=== PATIENT | male | born 1965 | race Caucasian/White ===

== ENCOUNTER 2020-11-07 09:12 | Emergency (ER) | payer BC ==
--- NOTE | 2020-11-07 10:01 | RAD REPORT ---
EXAM DESCRIPTION: RAD - Wrist Left 3 View - 11/07/2020 9:49 am CLINICAL HISTORY: wrist pain, no precipitating event COMPARISON: No comparisonsNo comparisons FINDINGS: No fracture is identified. There is no dislocation or periosteal reaction noted. No foreig n body or other soft tissue abnormality. IMPRESSION: Negative left wrist examination.
[2020-11-07] MEDS ORDERED: KETOROLAC 30 MG/ML INJ ONE (10:25)
--- NOTE | 2020-11-07 10:46 | EDPHYS ---
Physician Documentation [facility] Name: Chadd Billy Age: 55 yrs Sex: Male : 1965 Arrival Date: 11/07/2020 Time: 09:18 Bed 13 Private MD: Fredy Domingo V ED Physician Blaine Larson HPI: 11/07 09:37 This 55 yrs old Male presents to ER via Unassigned with complaints of Wrist jmm Injury. 09:37 The patient or guardian reports pain. Onset: The symptoms/episode began/occurred 1 jmm week(s) ago. Modifying factors: The symptoms are alleviated by holding still, the symptoms are aggravated by movement. Associated signs and symptoms: Pertinent negatives: nausea, numbness distally, tingling distally, vomiting. This is a 55 year old male with no chronic medical conditions that presents to the ED with complaints of left wrist pain. Denies known injury. Denies fever. States he does work out 6 times a week. . 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 - Social history:: Smoking status: Patient denies any tobacco usage or history of. ROS: 09:37 Constitutional: Negative for fever, chills, and weight loss, Cardiovascular: Negative jmm for chest pain, palpitations, and edema, Respiratory: Negative for shortness of breath, cough, wheezing, and pleuritic chest pain. 09:37 MS/extremity: Positive for pain. 09:37 All other systems are negative. Exam: 09:37 Constitutional: This is a well developed, well nourished patient who is awake, alert, jmm and in no acute distress. Head/Face: atraumatic. Eyes: EOMI, no conjunctival erythema appreciated ENT: Moist Mucus Membranes Neck: Trachea midline, Supple Chest/axilla: Normal chest wall appearance and motion. Cardiovascular: Regular rate and rhythm. No edema appreciated Respiratory: Normal respirations, no respiratory distress appreciated Abdomen/GI: Non distended, soft Back: Normal ROM Skin: General appearance color normal 09:37 Neuro: Awake and alert, normal gait Psych: Behavior is normal, Mood is normal, Patient is cooperative and pleasant 09:37 Musculoskeletal/extremity: pain elicited on the radial side of the left wrist, (+) julio cesar. Vital Signs: 09:35 BP 131 / 87; Pulse 85; Resp 14; Temp 98.3(TE); Pulse Ox 98% on R/A; Weight 81.65 kg; ss Height 5 ft. 9 in. (175.26 cm); Pain 5/10; 09:35 Body Mass Index 26.58 (81.65 kg, 175.26 cm) ss MDM: 09:29 Patient medically screened. gabriel 10:43 Data reviewed: vital signs, nurses notes. Counseling: I had a detailed discussion with [facility] the patient and/or guardian regarding: the historical points, exam findings, and any diagnostic results supporting the discharge/admit diagnosis, lab results, radiology results, the need for outpatient follow up, to return to the emergency department if symptoms worsen or persist or if there are any questions or concerns that arise at home. ED course: PE exam findings consistent with dequervains tenosynotivitis. Advised to follow up with orth for further evaluation. Patient understood and agrees with the plan of care. . 11/07 09:36 Order name: Uric Acid; Complete Time: 10:39 [facility] 11/07 09:35 Order name: Wrist Left (3 View) XRAY; Complete Time: 10:02 [facility] 11/07 10:31 Order name: Thumb Spica Splint; Complete Time: 10:35 [facility] Administered Medications: 10:22 Drug: Ketorolac 30 mg Route: IM; Site: left deltoid; tr6 Disposition: 12:22 Co-signature as Attending Physician, Blaine Larson MD I agree with the assessment and gabriel plan of care. Disposition: 11/07/20 10:45 Discharged to Home. Impression: Other synovitis and tenosynovitis. - Condition is Stable. - Discharge Instructions: De Quervain Tenosynovitis. - Prescriptions for Ibuprofen 800 mg Oral Tablet - take 1 tablet by ORAL route every 8 hours As needed take with food; 30 tablet. orphenadrine citrate 100 mg Oral Tablet Sustained Release - take 1 tablet by ORAL route 2 times per day As needed; 20 tablet. - Medication Reconciliation Form, Thank You Letter, Antibiotic Education, Prescription Opioid Use form. - Follow up: Cameron Thomas MD; When: 2 - 3 days; Reason: Recheck today's complaints, Continuance of care, Re-evaluation by your physician. Signatures: Dispatcher [employer] EDBlaine Tyson MD MD cha Mickail, Joel, PA PA jmm Smirch, Shelby, RN RN ss Domitila Schulz RN RN tr6 Corrections: (The following items were deleted from the chart) 11:22 10:45 11/07/2020 10:45 Discharged to Home. Impression: Other synovitis and tr6 tenosynovitis. Condition is Stable. Forms are Medication Reconciliation Form, Thank You Letter, Antibiotic Education, Prescription Opioid Use. Follow up: Dr. Cameron Thomas; When: 2 - 3 days; Reason: Recheck today's complaints, Continuance of care, Re-evaluation by your physician. renea
--- NOTE | 2020-11-07 10:46 | ER ---
Nurse's Notes [facility] Name: Chadd Billy Age: 55 yrs Sex: Male : 1965 Arrival Date: 11/07/2020 Time: 09:18 Bed 13 Private MD: Fredy Domingo V Diagnosis: Other synovitis and tenosynovitis Presentation: 11/07 09:35 Chief complaint: Patient states: L wrist pain and swelling that began 2 days ago. No ss known injury. Coronavirus screen: Client denies travel out of the [place] in the last 14 days. Ebola Screen: Patient denies exposure to infectious person. Patient denies travel to an Ebola-affected area in the 21 days before illness onset. Initial Sepsis Screen: Does the patient meet any 2 criteria? No. Patient's initial sepsis screen is negative. Does the patient have a suspected source of infection? No. Patient's initial sepsis screen is negative. Risk Assessment: Do you want to hurt yourself or someone else? Patient reports no desire to harm self or others. Onset of symptoms was November 04, 2020. 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 - Social history:: Smoking status: Patient denies any tobacco usage or history of. Vital Signs: 09:35 BP 131 / 87; Pulse 85; Resp 14; Temp 98.3(TE); Pulse Ox 98% on R/A; Weight 81.65 kg; ss Height 5 ft. 9 in. (175.26 cm); Pain 5/10; 09:35 Body Mass Index 26.58 (81.65 kg, 175.26 cm) ED Course: 09:18 Patient arrived in ED. am2 09:18 Fredy Domingo MD is Private Physician. am2 09:26 [facility] 09:26 Blaien Larson MD is Attending Physician. [facility] 09:37 Triage completed. ss 09:38 Arm band placed on right wrist. ss 09:48 Domitila Schulz, RN is Primary Nurse. tr6 09:49 Wrist Left (3 View) XRAY In Process Unspecified. EDMS 10:44 Cameron Thomas MD is Referral Physician. jmm 11:06 Velcro wrist splint applied to left wrist. em1 Administered Medications: 10:22 Drug: Ketorolac 30 mg Route: IM; Site: left deltoid; tr6 Outcome: 10:45 Discharge ordered by . jmm 11:22 Patient left the ED. tr6 Signatures: Dispatcher [employer] EDMS Radu Poe PA PA jmm Martinez, Eric em1 Aditi Viramontes RN RN Arlyn Reeves am2 Domitila Schulz, JANAE RN tr6
[2020-11-07 11:26] VITALS: BP 131/87; TEMP 98.3; O2SAT 98
== END 2020-11-07 11:22 | disposition home or self-care (01) ==
LOC: ER 09:12
DX: M65.88 Other synovitis and tenosynovitis, other site (principal)
CPT/HCPCS: 36415; 84550; 96372; 99283

== ENCOUNTER 2021-10-28 16:39 | Emergency (ER) | payer BC ==
--- OUTSIDE RECORDS SUMMARY | 2021-10-28 16:42 | XMS REPORT | Continuity of Care Document ---
:1965 Author Organization [facility] t Address [address] [place] [address] Dr. Talley [address] [place] [id number] Care Team Providers Name Role Phone Chayo CORDERO Primary Care Physician Chayo CORDERO Attending Clinician Claudio Carpenter MD Attending Clinician Fiona CORDERO Attending Clinician David TIPTON Attending Clinician Unavailable Aurora Attending Clinician Bradley CORDERO Attending Clinician Luz HODGES Attending Clinician MD JUSTINE CThierry Attending Clinician Unavailable Radha AMOS Attending Clinician Unavailable Shyam AMOS Attending Clinician Unavailable SHEILA Attending Clinician Unavailable FAISAL Attending Clinician Unavailable MD FAISAL Attending Clinician Unavailable JUSTINE Admitting Clinician Unavailable MD JUSTINE CThierry Admitting Clinician Unavailable FAISAL Admitting Clinician Unavailable MD FAISAL Admitting Clinician Unavailable MD CHARLI SANTOS Admitting Clinician Unavailable Payers Payer Name Policy Type Policy Number Effective Date Expiration Date S ource Problems Condition Condition Condition Status Onset Resolution Last Treating Co mments Source Name Details Category Date Date Treatment Clinician Date Chondromal Chondromal Disease Active Overview : [facility] [facility] left knee left knee 00:00: g of this H ospita 00 note l might be different from the original. Added automatic ally from request for surgery [id number] Chondromal Chondromal Disease Active Overview : [facility] [facility] patellofem patellofem 00:00: g of this Hospita oral oral 00 note l joint, joint, might be left left different from the original. Added automatic ally from request for surgery [id number] Arthrofibr Arthrofibr Disease Active Overview : [facility] osis [facility] osis of 09-[address] knee knee 00:00: g of this Hospita joint, joint, 00 note l left left might be different from the original. Added automatic ally from request for surgery [id number] Tear of Tear of Disease Active Methodi medial medial 07-14 st meniscus meniscus 00:00: Hospit a of left of left 00 l knee, knee, current current Bleeding Bleeding Disease Active Overview: Me thodi disorder disorder 10-[address] 00:00: g of this Hospita 00 note l might be different from the original. PT IS SEEING HEMATOLOG IST FOR F/U. Allergies, Adverse Reactions, Alerts This patient has no known allergies or adverse reactions. Family History Family Member Diagnosis Comments Start Date Stop Date Source Natural mother Cancer [facility] Natural brother Diabetes [facility] father Alcohol abuse [facility] father Arthritis [facility] father COPD [facility] father Heart disease [facility] father Hypertension [facility] Social History Social Habit Start Date Stop Date Quantity Comments Source History SDOH [facility] Frequency [facility]ospita l History SDOH [facility] Std [facility] Drinks History SDOH [facility] Binge [facility] Alcohol intake 2020-07-19 2020-07-19 .86 /d [facility] 00:[facility]00:00 Hospital Tobacco use and 2018-06-26 2018-06-26 Smokeless tobacco Me thodist exposure 00:00:00 00:00:00 non-user Hospital Alcohol Comment 2018-06-26 2018-06-26 social drinker [facility] dist 00:00:00 00:00:00 only Hospital Sex Assigned At [birth year] [facility] 00:00:00 00:00:00 Hospital Smoking Status Start Date Stop Date Source Never smoked tobacco [facility] Medications Ordered Filled Start Stop Current Ordering Indication Dosage Frequency Signature Comments Components Source Medication Medication Date Date Medication? Clinician (SIG) Name Name ascorbic Yes 250mg QD Take 250 Meth ran acid, 2-[address] vitamin C, 08:47: mouth Hospit a (vitamin C) 02 daily. l 250 MG tablet ZINC ORAL Yes Take by Metho di 2-[address] 08:47: Hospita 02 l vitamin E Yes Take by Metho di acetate 2-[address] (VITAMIN E 08:47: Hospita ORAL) 02 l cholecalcif Yes 2000U QD Take 2,000 Methodi jesus, 2-24 Units by vitamin D3, 08:47: mouth Hospi ta 50 mcg 02 daily. l (2,000 unit) capsule capsule cyanocobala Yes Q7D Inject as M ethodi min, 2-[address] vitamin 08:47: once a Hospita B-12, 02 week. l (VITAMIN B-12 INJ) TESTOSTERON Yes Q7D Inject Meth ran E ENANTHATE 2-[address] IM 08:47: shoulder, Hospita 02 thigh, or l buttocks once a week. multivitami Yes 1{tbl} QD Take 1 Me thodi n with 2-[address] minerals 08:47: mouth Hospita tablet 02 daily. l HYDROcodone 2020- No Postsurgic Methodi -acetaminop 07-06 al. Take 1 s t hen ([place]) 00:00: 05:59 tablet by Hospita 7.5-325 mg 00 :00 mouth l per tablet every 6 hours as needed for pain. Must last for 2 weeks desmopressi 2020- No 1.5mg 1.5 mg Me thodi n (STIMATE) 07-[address] 150 08:34: 00:00 nostril Hospita mcg/spray 17 :00 take as l (0.1 mL) directed. spray,non-a erosol anastrozole Yes .5mg Q7D Take 0.5 Me thodi (ARIMIDEX) 6-[address] 1 mg chemo 00:00: mouth once H ospita tablet 00 a week. l PARoxetine 2017-05 Yes 10mg QD 10 mg Method i (PAXIL) 10 2-[address] MG tablet 00:00: morning. Hosp hali 00 l Vital Signs Vital Name Observation Time Observation Value Comments Source Body height 2020-07-19 14:45:00 175.3 cm [facility] Body weight 2020-07-19 14:45:00 83.915 kg [facility] BMI 2020-07-19 14:45:00 27.32 kg/m2 [facility] Systolic blood 2020-07-13 17:45:24 128 mm[Hg] [facility] pressure Diastolic blood 2020-07-13 17:45:24 78 mm[Hg] [facility] pressure Heart rate 2020-07-13 17:45:24 76 /min [facility] Body temperature 2020-07-13 17:45:24 36.94 Amanda [facility] Respiratory rate 2020-07-13 17:45:24 10 /min [facility] Oxygen saturation in 2020-07-13 17:45:24 99 /min [facility] Arterial blood by Pulse oximetry Procedures Procedure Date / Time Performed Performing Clinician Sour e HEMOGLOBIN & HEMATOCRIT 2020-07-13 19:50:00 Isabella Cisneros [facility] ND AN ELECTIVE 2020-07-07 16:20:13 Miriam Perry spital SUPRAGLOTTIC AIRWAY OPERATION, KNEE, 2020-07-07 15:52:00 [facility] Adalberto [facility] ARTHROSCOPIC POC GLUCOSE 2020-07-07 14:50:00 [facility] COVID-19 QUALITATIVE 2020-07-04 14:44:00 [facility] RT-PCR Plan of Care Planned Activity Planned Date Details Comments Source Future Scheduled 2021-04-04 COVID-19 VACCINE (1) Met [facility] Test 14:14:18 [code = COVID-19 VACCINE (1)] Future Scheduled 2021-04-04 Hepatitis C screening [facility] Test 14:14:18 (procedure) [code = 701395035] Future Scheduled 2021-04-04 COLONOSCOPY SCREENING [facility] Test 14:14:18 [code = COLONOSCOPY SCREENING] Future Scheduled 2021-04-04 SHINGLES VACCINES Method [facility] Test 14:14:18 (#1) [code = SHINGLES VACCINES (#1)] Future Scheduled 2021-04-04 INFLUENZA VACCINE [facility] Test 14:14:18 [code = INFLUENZA VACCINE] Encounters Start End Encounter Admission Attending Care Care Encounter Source Date/Time Date/Time Type Type Clinicians Facility Department ID 2021-02-14 2021-02-14 Transcribe Chayo, 1.2.840.1 [id number] Methodi 00:00:00 00:00:00 Orders Fredy [address]39.1.[address] 3.430.2.7 Hospit a .3.676071 l .8 2020-07-19 2020-07-19 Office Sitter, 1.2.840.1 [id number] Methodi 08:33:04 09:13:13 Visit Adalberto Snyder 10819.1.1 697 s t 3.430.2.7 Hospit a .3.981727 l .8 2020-07-19 2020-07-19 Travel 1.2.840.1 1.2.901.179 [id number] Methodi 00:00:00 00:00:[address] 3.430.2.7 0.2.7.3.698 Ho spita .3.649396 084.8 l .8 2020-07-13 2020-07-13 Emergency Jaimes, 1.2.840.1 [id number] Methodi 13:19:00 14:55:[address] 3.430.2.7 Hospit a .3.207928 l .8 2020-07-13 2020-07-13 Travel 1.2.840.1 1.2.890.112 [id number] Methodi 00:00:00 00:00:[address] 3.430.2.7 0.2.7.3.698 Ho spita .3.035629 084.8 l .8 2020-07-13 2020-07-13 Telephone David, 1.2.840.1 [id number] Methodi 00:00:00 00:00:[address] 3.430.2.7 Hospit a .3.758651 l .8 2020-07-08 2020-07-08 Telephone Aurora, 1.2.840.1 [id number] Methodi 00:00:00 00:00:[address] 3.430.2.7 Hospit a .3.554524 l .8 2020-07-07 2020-07-07 Hospital Sitter, 1.2.840.1 [id number] Methodi 07:50:00 11:59:00 Encounter Adalberto Snyder [address]87.1.[address] 3.430.2.7 Hospit a .3.592711 l .8 2020-07-07 2020-07-07 Anesthesia Josiah Huerta 1.2.8 40.1 [id number] Methodi 09:52:00 10:49:00 Event Candice Escobar 84748.1.[address] 3.430.2.7 Hospit a .3.630828 l .8 2020-07-07 2020-07-07 Surgery Sitter, 1.2.840.1 [id number] Methodi 09:50:00 10:25:00 Adalberto C. 22163.1.1 376 s t 3.430.2.7 Hospit a .3.890724 l .8 2020-07-06 2020-07-06 Orders Sitter, 1.2.840.1 [id number] Methodi 00:00:00 00:00:00 Only Adalberto C. 30204.1.1 664 s t 3.430.2.7 Hospit a .3.053132 l .8 2020-07-04 2020-07-04 Pre-Admiss Sitter, 1.2.840.1 [id number] Methodi 08:23:41 09:23:41 ion Adalberto Rankin. 10875.1.1 833 s t Testing 3.430.2.7 Hospit a .3.134616 l .8 2020-07-04 2020-07-04 Orders Radha, 1.2.840.1 [id number] Methodi 00:00:00 00:00:00 Only Blessing [address]994.1.[address] 3.430.2.7 Hospit a .3.039297 l .8 2020-07-03 2020-07-03 Travel 1.2.840.1 1.2.309.918 [id number] Methodi 00:00:00 00:00:[address] 3.430.2.7 0.2.7.3.698 Ho spita .3.219135 084.8 l .8 2020-06-30 2020-06-30 Transcribe Shyam, 1.2.840.1 [id number] Methodi 00:00:00 00:00:00 Orders Svetlana 16833.1.[address] 3.430.2.7 Hospit a .3.015378 l .8 2020-06-26 2020-06-26 Office Sitter, 1.2.840.1 [id number] Methodi 14:20:41 15:03:43 Visit Adalberto Snyder 32399.1.1 016 s t 3.430.2.7 Hospit a .3.013197 l .8 2020-06-26 2020-06-26 Travel 1.2.840.1 1.2.350.425 [id number] Methodi 00:00:00 00:00:[address] 3.430.2.7 0.2.7.3.698 Ho spita .3.491136 084.8 l .8 2020-05-24 2020-05-24 Outpatient SITTER, [facility] [id number] [address] [place] [address] 00:00:00 00:00:00 ADALBERTO Rojo [facility] 2020-05-24 2020-05-24 Outpatient SITTER, [facility] [id number] [address] [place] [address] 00:00:00 00:00:00 ADALBERTO [address] 2020-05-10 2020-05-10 Outpatient WOOD, [facility] [id number] 9[address] [place] 00:00:00 00:00:00 NASIR [address] 2019-12-31 2019-12-31 Outpatient FAISAL, [facility] [id number] [place] 00:00:00 00:00:00 JENNY [address] 2019-12-23 2019-12-23 Outpatient FAISAL, [facility] [id number] [place] 00:00:00 00:00:00 JENNY [address] 2019-12-21 2019-12-21 Outpatient FAISAL, [facility] [id number] 057 [place] 00:00:00 00:00:00 JENNY [address] 2019-12-15 2019-12-15 Outpatient FAISAL, [facility] [id number] [place] 00:00:00 00:00:00 JENNY [address] 2019-12-15 2019-12-15 Outpatient FAISAL, [facility] [id number] 036 [place] 00:00:00 00:00:00 JENNY [address] 2019-11-08 2019-11-08 Outpatient FAISAL, [facility] [id number] 659 [place] 00:00:00 00:00:00 JENNY [address] 2019-11-01 2019-11-01 Outpatient FAISAL, [facility] [id number] 601 [place] 00:00:00 00:00:00 JENNY [address] 2019-10-22 2019-10-22 Outpatient FAISAL, [facility] [id number] 134 [place] 00:00:00 00:00:00 JENNY [address] 2019-10-19 2019-10-19 Outpatient FAISAL, [facility] [id number] [place] 00:00:00 00:00:00 JENNY [address] 2019-10-12 2019-10-12 Outpatient FAISAL, [facility] [id number] 323 [place] 00:00:00 00:00:00 JENNY [address] 2019-10-05 2019-10-05 Outpatient FAISAL, [facility] [id number] 323 [place] 00:00:00 00:00:00 JENNY [address] 2019-08-16 2019-08-16 Outpatient FAISAL, [facility] [id number] 633 [place] 00:00:00 00:00:00 JENNY [address] 2019-08-16 2019-08-16 Outpatient FAISAL, [facility] [id number] 702 [place] 00:00:00 00:00:00 JENNY [address] 2019-08-04 2019-08-04 Outpatient FAISAL, [facility] [id number] 135 [place] 00:00:00 00:00:00 JENNY [address] Results Test Description Test Time Test Comments Results Result Comments Source SARS-CoV-2 (COVID-19) RNA [Presence] in Respiratory sp ecimen by 2020-07-04 16:41:05 BRYANT with probe detection Test Item Value Reference Range Interpretation Comme nts SARS-CoV-2 (COVID-19) RNA [Presence] in Respiratory Not detected No t-Detected specimen by BRYANT with probe detection (test code = 84573-1) SARS-CoV-2 (COVID-19) RNA [Presence] in Respiratory specimen by BRYANT with probe [id number] 22:35:47 Test Item Value Reference Range Interpretation Comments SARS-CoV-2 (COVID-19) RNA Not detected Not-Detected [Presence] in Respiratory specimen by BRYANT with probe detection (test code = 03692-6) SARS coronavirus 2 RNA [Presence] in Respiratory specimen by BRYANT with probe [id number] 19:08:31 Test Item Value Reference Range Interpretation Comments SARS coronavirus 2 RNA Not detected Not-Detected [Presence] in Respiratory specimen by BRYANT with probe detection (test code = 41020-0)
[2021-10-28] MEDS ORDERED: TETANUS & DIPHTHERIA TOX,ADULT 0.5 ML VIAL ONE (18:07)
--- NOTE | 2021-10-28 18:42 | RAD REPORT ---
EXAM DESCRIPTION: RAD - Hand Left 3 View - 10/28/2021 6:32 pm CLINICAL HISTORY: PAIN COMPARISON: No comparisons FINDINGS: Soft tissue swelling is seen along the dorsum of the hand as well as along the ulnar aspec t of the hand. No fracture or radiopaque foreign body evident.
--- NOTE | 2021-10-28 18:49 | EDPHYS ---
Physician Documentation [facility] Name: Chadd Billy Age: 56 yrs Sex: Male : 1965 Arrival Date: 10/28/2021 Time: 16:44 Bed 12 Private MD: Fredy Domingo V ED Physician Blaine Larson HPI: 10/28 17:24 This 56 yrs old Male presents to ER via Ambulatory with complaints of Hand Injury. en 17:24 The patient or guardian reports. 55 yo RHD M presents to ED with L hand pain, swelling en and DROM to thumb after trip and fall last night. Pt tripped over baby gate jamming thumb into ground. Dislocated left thumb and had to reduce it. Now unable to pinch or opposed with left thumb, increased swelling and bruising. . 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 - Social history:: Smoking status: Patient denies any tobacco usage or history of. ROS: 17:24 Constitutional: Negative for fever, chills, and weight loss. en 17:24 MS/extremity: Positive for decreased range of motion, ecchymosis, pain, swelling, tenderness. 17:24 Skin: Positive for abrasion(s), ABRASION TO LEFT FOREHEAD AND LEFT THENAR EMINENCE. 17:24 Neuro: Negative for altered mental status, numbness. 17:24 All other systems are negative. Exam: 17:24 Constitutional: This is a well developed, well nourished patient who is awake, alert, en and in no acute distress. 17:24 Constitutional: The patient appears in no acute distress. 17:24 Head/face: ABRASION OVER LEFT EYEBROW. 17:24 Eyes: Pupils: equal, round, and reactive to light and accomodation, Extraocular movements: intact throughout. 17:24 ENT: TM's: hemotympanum, is not appreciated. 17:24 Neck: External neck: tenderness, is not appreciated, Trachea: is midline with no obvious abnormalities. 17:24 Cardiovascular: Rate: normal, Rhythm: regular, Pulses: no pulse deficits are appreciated, Heart sounds: normal, no rub, no gallop. 17:24 Respiratory: the patient does not display signs of respiratory distress, Respirations: normal, Breath sounds: are clear throughout. 17:24 Abdomen/GI: Inspection: abdomen appears normal, Bowel sounds: normal, Palpation: soft, nontender, mild abdominal tenderness. 17:24 Back: pain, is absent, ROM is normal. 17:24 Musculoskeletal/extremity: Left hand with DROM to thumb, Significant swelling and ecchymosis to thenar eminence. Unable to flex at MCP joint. Unable to oppose or pinch. Unable to assess collateral ligaments at 1st MCP 2/2 pain and swelling. Cap refill < 2sec. 17:24 Skin: Appearance: normal except for affected area, ecchymosis, ecchymosis to left thenar eminence. 17:24 Neuro: normal sensation. 17:24 Psych: Exam negative for acute changes. Vital Signs: 17:09 BP 125 / 74; Pulse 81; Resp 18; Temp 98.4; Pulse Ox 96% on R/A; Weight 81.65 kg; Height ph 5 ft. 9 in. (175.26 cm); 17:09 Body Mass Index 26.58 (81.65 kg, 175.26 cm) ph MDM: 17:12 Patient medically screened. [email or web address] 17:24 Differential diagnosis: dislocation, closed fracture, contusion, tendon injury at 1st en MCP jt. Data reviewed: vital signs, nurses notes, radiologic studies, and as a result, I will Will get XR and update tetanus. Declined pain medication. 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 Exp: ph 08/04/2023. Lot #: [id number]. } Route: IM; Site: left deltoid; 18:48 Follow up: Response: No adverse reaction ss Disposition Summary: 10/28/21 18:48 Discharge Ordered Location: Home en Problem: new en Symptoms: are unchanged en Condition: Stable en Diagnosis - Other sprain of left thumb en Followup: en - With: Dev Dillon MD - When: 2 - 3 days - Reason: Discharge Instructions: - Discharge Summary Sheet en - Skier's Thumb en Forms: - Medication Reconciliation Form en - Thank You Letter en - Antibiotic Education en - Prescription Opioid Use en Prescriptions: - Ibuprofen 800 mg Oral Tablet - take 1 tablet by ORAL route every 12 hours As needed take with food; 20 tablet; en Refills: 0, Product Selection Permitted Signatures: Dispatcher [employer] Blaine Aleman MD MD cha Hall, Patricia, RN RN Mariola Mancuso PA PA en Smirch, Shelby RN ss
--- NOTE | 2021-10-28 18:49 | ER ---
Nurse's Notes [facility] Name: Chadd Billy Age: 56 yrs Sex: Male : 1965 Arrival Date: 10/28/2021 Time: 16:44 Bed 12 Private MD: Fredy Domingo V Diagnosis: Other sprain of left thumb Presentation: 10/28 17:09 Chief complaint: Patient states: Tripped and fell over baby gate last night, puncture ph injury to L hand w/ bruising and swelling present, also has abrasion above L eye, denies LOC. Coronavirus screen: Vaccine status: Patient reports being unvaccinated. Ebola Screen: No symptoms or risks identified at this time. Initial Sepsis Screen: Does the patient meet any 2 criteria? No. Patient's initial sepsis screen is negative. Does the patient have a suspected source of infection? No. Patient's initial sepsis screen is negative. Risk Assessment: Do you want to hurt yourself or someone else? Patient reports no desire to harm self or others. Onset of symptoms was October 28, 2021. 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 - Social history:: Smoking status: Patient denies any tobacco usage or history of. Screenin:19 Abuse screen: Denies threats or abuse. Denies injuries from another. Nutritional ph screening: No deficits noted. Tuberculosis screening: No symptoms or risk factors identified. Fall Risk None identified. Assessment: 18:17 General: Appears in no apparent distress. comfortable, Behavior is calm, cooperative, ph appropriate for age. Pain: Complains of pain in left hand. Neuro: Level of Consciousness is awake, alert, obeys commands, Oriented to person, place, time, situation. Cardiovascular: Capillary refill < 3 seconds in bilateral fingers Patient's skin is warm and dry. Respiratory: Airway is patent Respiratory effort is even, unlabored. Musculoskeletal: Circulation, motion, and sensation intact. Range of motion: limited in MCP of left thumb. Injury Description: Abrasion sustained to left side of forehead Bruise sustained to palmar aspect of proximal phalanx of left thumb Laceration sustained to palmar aspect of proximal phalanx of left thumb. 18:55 Reassessment: Patient appears in no apparent distress at this time. Derm: Skin is pink, ss warm \T\ dry. normal. Vital Signs: 17:09 BP 125 / 74; Pulse 81; Resp 18; Temp 98.4; Pulse Ox 96% on R/A; Weight 81.65 kg; Height ph 5 ft. 9 in. (175.26 cm); 17:09 Body Mass Index 26.58 (81.65 kg, 175.26 cm) ph ED Course: 16:44 Patient arrived in ED. am2 16:45 Fredy Domingo MD is Private Physician. am2 17:06 [facility] Padilla [facility]. en 17:11 Triage completed. ph 17:11 Arm band placed on Patient placed in an exam room. ph 17:12 Blaine Larson MD is Attending Physician. [email or web address] 17:59 Christie Talley, JANAE is Primary Nurse. ph 18:19 Patient has correct armband on for positive identification. Pulse ox on. NIBP on. ph 18:34 Hand Left 3 View XRAY In Process Unspecified. EDMS 18:47 Dev Dillon MD is Referral Physician. en 18:55 No provider procedures requiring assistance completed. Patient did not have IV access ss during this emergency room visit. 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 Exp: ph 08/04/2023. Lot #: [id number]. } Route: IM; Site: left deltoid; 18:48 Follow up: Response: No adverse reaction ss Medication: 18:00 Vaccine Information Statement (VIS) provided today. Questions and/or concerns ph addressed. VIS edition date: December 29, 2020. Outcome: 18:48 Discharge ordered by . en 18:55 Discharged to home ambulatory. ss 18:55 Condition: good 18:55 Discharge instructions given to patient, Instructed on discharge instructions, follow up and referral plans. medication usage, Demonstrated understanding of instructions, follow-up care, medications, Prescriptions given X 1. 19:01 Patient left the ED. ss Signatures: Dispatcher [employer] EDCT Blaine Larson MD MD cha Smirch, Shelby RN RN Christie Talley, RN RN ph Arlyn Espitia am2 Mraiola Padilla PA PA en
[2021-10-28 19:22] VITALS: BP 125/74; TEMP 98.4; O2SAT 96
== END 2021-10-28 19:01 | disposition home or self-care (01) ==
LOC: ER 16:39
DX: S63.682A Other sprain of left thumb, initial encounter (principal); W01.0XXA Fall on same level from slipping, tripping and stumbling without subsequent striking against object, initial encounter; Y93.89 Activity, other specified; Y92.019 Unspecified place in single-family (private) house as the place of occurrence of the external cause; D66 Hereditary factor VIII deficiency; Z23 Encounter for immunization
CPT/HCPCS: 90471; 90714; 99284